=== PATIENT | male | born 1960 | race Caucasian/White ===

== ENCOUNTER 2016-12-06 12:22 | Emergency (ER) | payer OTHER ==
[2016-12-06 12:47] VITALS: RESP 16; TEMP 98.3; BMI 25.8
--- NOTE | 2016-12-06 13:23 | ED PDOC ---
Arrival/HPI - General Chief Complaint: Lower Extremity Problem/Injury Time Seen by Provider: 12/06/16 13:05 Historian: Patient - History of Present Illness Narrative History of Present Illness (Text): 12/06/16 13:21 55yo male with the family in ED for sharp right gluteus pain that radiates posteriorly to his lower leg. States pain started 2weeks ago and became worse today. Taking Ibuprofen without relieve. Denies urinary/fecal incontinence, saddle anesthesia, focal weakness, trauma, abdominal pain, any other complaint. Past Medical History - Provider Review Nursing Documentation Reviewed: Yes - Pulmonary Hx Asthma: Yes - Gastrointestinal Hx Gastroesophageal Reflux: Yes - Psychiatric Hx Substance Use: No Family/Social History - Physician Review Nursing Documentation Reviewed: Yes Family/Social History: Unknown Family HX Smoking Status: Former Smoker Hx Alcohol Use: Yes Hx Substance Use: No Allergies/Home Meds Allergies/Adverse Reactions: Allergies No Known Allergies Allergy (Verified 11/22/16 12:07) Review of Systems - Physician Review All systems were reviewed & negative as marked: Yes - Review of Systems Constitutional: Normal Eyes: Normal ENT: Normal Respiratory: Normal Cardiovascular: Normal Gastrointestinal: Normal Genitourinary Male: Normal Musculoskeletal: Back Pain Skin: Normal Neurological: Normal Endocrine: Normal Hemo/Lymphatic: Normal Psychiatric: Normal Physical Exam Vital Signs Reviewed: Yes Vital Signs Temp Pulse Resp BP Pulse Ox 12/06/16 12:45 98.3 F 65 16 137/80 97 Temperature: Afebrile Blood Pressure: Normal Pulse: Regular Respiratory Rate: Normal Appearance: Positive for: Well-Appearing, Non-Toxic, Comfortable Pain Distress: None Mental Status: Positive for: Alert and Oriented X 3 - Systems Exam Head: Present: Atraumatic, Normocephalic Pupils: Present: PERRL Extroacular Muscles: Present: EOMI Conjunctiva: Present: Normal Mouth: Present: Moist Mucous Membranes Neck: Present: Normal Range of Motion Respiratory/Chest: Present: Clear to Auscultation, Good Air Exchange. No: Respiratory Distress, Accessory Muscle Use Cardiovascular: Present: Regular Rate and Rhythm, Normal S1, S2. No: Murmurs Abdomen: Present: Normal Bowel Sounds. No: Tenderness, Distention, Peritoneal Signs Back: Present: Pain with Leg Raise (Right SLR). No: Midline Tenderness, Paraspinal Tenderness Upper Extremity: Present: Normal Inspection. No: Cyanosis, Edema Lower Extremity: Present: Normal Inspection. No: Edema Neurological: Present: GCS=15, CN II-XII Intact, Speech Normal Skin: Present: Warm, Dry, Normal Color. No: Rashes Psychiatric: Present: Alert, Oriented x 3, Normal Insight, Normal Concentration Medical Decision Making ED Course and Treatment: 12/06/16 14:29 Pt in ED for stated history. Pain controlled in Ed with medication. On re evaluation he states pain improved. Ambulatory. Per US tech Doppler is negative for DVT b/l LS xray - Negative Result DW the pt. Referred to ortho. TRT ER for any new or worsening symptoms. - RAD Interpretation Radiology Orders: 12/06/16 13:14 LS SPINE WITH OBL > 18 YRS OLD [RAD] Stat 12/06/16 13:15 DUPLEX LOWER EXTRM VEIN RIGHT [US] Stat - Medication Orders Current Medication Orders: Discontinued Medications Cyclobenzaprine HCl (Flexeril) 10 mg PO STAT STA Stop: 12/06/16 13:16 Last Admin: 12/06/16 13:27 Dose: 10 MG Ketorolac Tromethamine (Toradol) 60 mg IM STAT STA Stop: 12/06/16 13:16 Last Admin: 12/06/16 13:27 Dose: 60 MG IM Administration Charges Document 12/06/16 13:27 HI (Rec: 12/06/16 13:27 HI [id number]) Injection Site MAR Injection Site Left Deltoid Charges for Administration # of IM Administrations 1 Disposition/Present on Arrival - Present on Arrival Any Indicators Present on Arrival: No History of DVT/PE: No History of Uncontrolled Diabetes: No Urinary Catheter: No History of Decub. Ulcer: No History Surgical Site Infection Following: None - Disposition Have Diagnosis and Disposition been Completed?: Yes Diagnosis: Radicular leg pain, Back pain Disposition: HOME/ ROUTINE Disposition Time: 14:50 Patient Plan: Discharge Patient Problems: Current Active Problems Problem Status Diagnosed Back pain Acute Radicular leg pain Acute Condition: STABLE Discharge Instructions (ExitCare): Lumbar Radiculopathy (ED) Additional Instructions: Follow up with orthopedist Return to ER for any new or worsening symptoms Prescriptions: Cyclobenzaprine [Cyclobenzaprine HCl] 10 mg PO BID #10 tab traMADol [Ultram] 50 mg PO TID #10 tab Referrals: PCP,NO [Primary Care Provider] - Follow up with primary Jose Mcgraw MD [Staff Provider] - Follow up with primary
--- NOTE | 2016-12-06 14:47 | RAD ---
PROCEDURE: Radiographs of the Lumbar Spine. HISTORY: gleteal pain COMPARISON: No prior. FINDINGS: BONES: Normal alignment. No listhesis. No fracture. DISC SPACES: Unremarkable. OTHER FINDINGS: None. IMPRESSION: Unremarkable radiographs of the lumbar spine.
[2016-12-06 14:57] VITALS: BP 148/88; PULSE 70; O2SAT 98
--- NOTE | 2016-12-06 16:35 | US ---
PROCEDURE: Right lower extremity venous US HISTORY: Leg pain and swelling. Evaluate for DVT. PHYSICIAN(S): Colt Morejon M.D. TECHNIQUE: Duplex sonography and color-flow Doppler with graded compression were used to evaluate the deep venous system of the right lower extremity. FINDINGS: The visualized deep venous system of the right lower extremity is sonographically normal and compressible. Normal waveforms and augmentation are seen. There is no sonographic evidence for deep venous thrombosis in the visualized segments of the right lower extremity. IMPRESSION: 1. No sonographic evidence for deep venous thrombosis in the visualized segments of the right lower extremity.
== END 2016-12-06 15:03 | disposition home or self-care (01) ==
LOC: ED 12:22
DX: M79.604 Pain in right leg (principal); M54.9 Dorsalgia, unspecified; Z87.891 Personal history of nicotine dependence
CPT/HCPCS: 72110; 93971; 96372; 99284; J1885